=== PATIENT | female | born 1990 | race Caucasian/White ===

== ENCOUNTER 2016-11-03 09:09 | Outpatient (CLI) | payer OTHER ==
--- NOTE | 2016-11-03 10:00 | L&D Flow Sheet ---
LD Flowsheet Datetime Report Generated by CPN: 11/03/2016 10:00 Datetime: 11/03/2016 09:54 Vaginal Exam Exam by: Dr Neilsen (Alexa Baidy, RN) Vaginal Exam Comments: closed thick and high (Alexa Baidy, RN) Datetime: 11/03/2016 09:53 Communication Communication Comments: Dr Neilsen at bedside to speak to pt about POC and perform SVE (Alexa Baidy, RN) Datetime: 11/03/2016 09:30 Vital Signs NBP Sys/Tessa/Mean (mmHg): 113 (QS system process) : 75 (QS system process) : 89 (QS system process) Pulse: 111 (QS system process) Datetime: 11/03/2016 09:28 Pain Pain Scale: 3 (Alexa Giraldo RN) Pain Presence: Constant (Alexa Giraldo RN) Pain Type: Sharp (Alexa Giraldo RN) Pain Location: Other (Annotations: vaginal) (Alexa Giraldo RN) Pain Goal: 1 (Alexa Giraldo RN) Membrane Status: Intact (Alexa Giraldo RN) Vaginal Bleeding: None (Alexa Giraldo RN) Maternal Assessment Level of Consciousness: Fully Conscious (Alexa Giraldo, JEFFERY) DTR's/Clonus: DTRs 2+; No Clonus (Alexa Giraldo, JEFFERY) Headache: Denies (Alexa Giraldo, JEFFERY) Breath Sounds, Left: Clear and Equal (Alexa Giraldo, RN) Breath Sounds, Right: Clear and Equal (Alexa Giraldo, RN) Nausea/Vomiting: Denies (Alexa Giraldo, RN) RUQ Epigastric Pain: Denies (Alexa Giraldo, JEFFERY) Patient Care Patient Position/Activity: Semi-Fowlers (Alexa Giraldo, JEFFERY) Teaching Instructional Method: Verbal; Patient Instructed; Verbalized Understanding (Alexa Giraldo RN) Plan of Care: Plan of Care Discussed (Alexa Giraldo RN) Unit Routine: [place] to Room; Call [place]; Bed (Alexa Giraldo RN)
[2016-11-03 10:07] LABS: APPEARANCE,URINE SLIGHTLY-CLOUDY; BILIRUBIN,URINE NEGATIVE (NEGATIVE); GLUCOSE, URINE NEGATIVE (NEGATIVE); KETONES,URINE NEGATIVE (NEGATIVE); LEUKOCYTE ESTERASE,URINE TRACE (NEGATIVE); NITRITE,URINE NEGATIVE (NEGATIVE); PROTEIN,URINE NEGATIVE (NEGATIVE); UROBILINOGEN,URINE NEGATIVE mg/dL (<2.0)
[2016-11-03 10:22] LABS: URINE BARBITURATES SCREEN NEGATIVE; URINE METHADONE SCREEN NEGATIVE; URINE OPIATES LOW NEGATIVE; URINE PHENCYCLIDINE SCREEN NEGATIVE
[2016-11-03] MEDS ORDERED: HYDROXYZINE PAMOATE 50 MG CAPSULE PO ONE (11:07)
[2016-11-03] MEDS ORDERED: HYDROXYZINE PAMOATE 50 MG CAPSULE ONE (11:09)
== END 2016-11-03 11:19 | disposition home or self-care (01) ==
LOC: LC 09:09
PROVIDERS: ATTEND Specialist
PROC: 4A1HXCZ Monitoring of Products of Conception, Cardiac Rate, External Approach (ICD-10-PCS; principal; 2016-11-03)
DX: O26.893 Other specified pregnancy related conditions, third trimester (principal); R10.2 Pelvic and perineal pain; Z3A.28 28 weeks gestation of pregnancy
CPT/HCPCS: 80307; 81001; 87086

== ENCOUNTER 2016-12-29 18:35 | Outpatient (CLI) | payer OTHER ==
[2016-12-29 19:21] LABS: APPEARANCE,URINE SLIGHTLY-CLOUDY; BILIRUBIN,URINE NEGATIVE (NEGATIVE); GLUCOSE, URINE 50 mg/dL (NEGATIVE); KETONES,URINE 20 mg/dL (NEGATIVE); LEUKOCYTE ESTERASE,URINE NEGATIVE (NEGATIVE); NITRITE,URINE NEGATIVE (NEGATIVE); PROTEIN,URINE NEGATIVE (NEGATIVE); URINE SPECIFIC GRAVITY 1.016; UROBILINOGEN,URINE NEGATIVE mg/dL (<2.0)
[2016-12-29 19:38] LABS: URINE BARBITURATES SCREEN NEGATIVE; URINE METHADONE SCREEN NEGATIVE; URINE OPIATES LOW NEGATIVE; URINE PHENCYCLIDINE SCREEN NEGATIVE
--- NOTE | 2016-12-29 20:01 | L&D Flow Sheet ---
LD Flowsheet Datetime Report Generated by CPN: 12/29/2016 20:00 Datetime: 12/29/2016 19:56 NBP Sys/Tessa/Mean (mmHg): 112 (QS system process) : 66 (QS system process) : 82 (QS system process) Pulse: 103 (QS system process) LaborFlag: Antepartum (QS system process) Datetime: 12/29/2016 19:35 Communication Communication Comments: Dr. Oswald called and notified of pt. arrival, hx, lab results, SVE, toco tracing, and FHT. Orders received once reactive to perform SVE one hour from first SVE and make MD aware (Dary Josias, RN) Datetime: 12/29/2016 19:30 Uterine Activity Monitor Mode: External; Palpation (Dary Josias, RN) Frequency (min): 4-7 (Dary Josias, RN) Quality: Mild/Moderate (Dary Josias, RN) Duration (sec): 40-70 (Dary Josias, RN) Duration Criteria: Less than Two 120 Second Contractions (Dary Josias, RN) Pattern: Normal: <= 5 Contractions in 10 Minutes (Dary Josias, RN) Resting Tone (Palpate): Relaxed (Dary Josias, RN) Assessment A Monitor Mode: External US (Dary Josias, RN) FHR Baseline Rate : 125 (Dary Josias, RN) Variability: Moderate 6-25 bpm (Dary Josias, RN) Accelerations: 15X15 (Dary Josias, RN) Decelerations: None (Dary Josias, RN) Datetime: 12/29/2016 19:27 NBP Sys/Tessa/Mean (mmHg): 114 (QS system process) : 65 (QS system process) : 85 (QS system process) Pulse: 95 (QS system process) LaborFlag: Antepartum (QS system process) Datetime: 12/29/2016 19:19 Pain Pain Scale: 2 (Dary Josias, RN) Pain Presence: Intermittent (Dary Joisas, RN) Pain Type: Contraction (Dary Josias, RN) Pain Location: Abdomen (Dary Josias, RN) Pain Coping: Talking Through Contractions (Dary Josias, RN) Patient Care Patient Position/Activity: Right Tilt (Dary Josias, RN) I/O Interventions: Popsicle (Dary Josias, RN) LaborFlag: Antepartum (QS system process) Datetime: 12/29/2016 19:12 Communication Communication Comments: Report received from A. Sal, RN and care assumed at this time (Dary Josias, RN) Datetime: 12/29/2016 19:01 Vaginal Exam Dilatation (cm): 2.5 (Valencia Huang RN) Effacement (%): 50 (Valencia Huang RN) Station: -2 (Valencia Huang RN) Exam by: Jyoti Huang RN (Valencia Huang RN) Vaginal Bleeding: None (Valencia Huang RN) Cervix, Consistency: Moderate (Valencia Huang RN) Cervix, Position: Posterior (Valencia Huang RN) Datetime: 12/29/2016 18:53 Vital Signs Stage of : Antepartum (Valencia Huang RN) NBP Sys/Tessa/Mean (mmHg): 119 (QS system process) : 67 (QS system process) : 87 (QS system process) Pulse: 103 (QS system process) Respirations: 18 (Valencia Huang RN) Temperature (F): 98.5 (Valencia Huang RN) Temperature (C): 36.9 (QS system process) Temperature Route: Oral (Valencia Huang RN) Frequency (min): 3-4 (Valencia Huang RN) Pain Pain Scale: 2 (Valencia Huang RN) Pain Presence: Intermittent (Valencia Huang RN) Pain Type: Contraction (Valencia Huang RN) Pain Location: Abdomen (Valencia Huang RN) Pain Goal: 2 (Valencia Huang RN) Pain Relief Measures: Comfort Measures (Valencia Huang RN) Pain Coping: Talking Through Contractions (Valencia Huang RN) Vaginal Bleeding: None (Valencia Huang RN) Maternal Assessment Level of Consciousness: Fully Conscious (Valencia Huang RN) DTR's/Clonus: DTRs 1+; No Clonus (Valencia Huang RN) Headache: Denies (Valencia Huang RN) Breath Sounds, Left: Clear and Equal (Valencia Huang RN) Breath Sounds, Right: Clear and Equal (Valencia Huang RN) Nausea/Vomiting: Denies (Valencia Huang RN) RUQ Epigastric Pain: Denies (Valencia Huang RN) Teaching Instructional Method: Verbal; Patient Instructed; Family/Support Person Instructed; Verbalized Understanding (Valencia Huang RN) Plan of Care: Plan of Care Discussed (Valencia Huang RN) Unit Routine: [place] to Room; [place]; Bed; Unit Personnel; Handwashing; Monitoring (Valencia Huang RN) LaborFlag: Antepartum (QS system process)
--- NOTE | 2016-12-29 21:11 | Non Stress Test Report ---
Non Stress Test Datetime Report Generated by CPN: 12/29/2016 21:11 DEMOGRAPHIC EGA NST: 36.3 INDICATION Indication for Study: Other Indication for Study (NST) Other: LC URINE RESULTS Urine Protein, NST: Negative Urine Ketones - NST: Positive Urine Glucose - NST: Positive Urine Blood - NST: Negative MONITORING Monitor Explained: Monitor Explained; Test Explained; Patient Verbalized Understanding Time on Monitor: 12/29/2016 18:54 NST INTERVENTIONS NST Interventions: PO Hydration; Other NST Interventions Other: popsicle Physician Notified NST: Dr. Oswald BABY A: [id number] BABY A Movement : Present Contraction Frequency : 3-9 FHR Baseline : 125 Accelerations : 15X15 Decelerations : None Variability : Moderate 6-25bpm NST Review: Meets Criteria for Reactive NST NST Review and Verified By : Jyoti Yarbrough RN Results: Reactive NST REPORT Report Trigger: Send Report
== END 2016-12-29 21:14 | disposition home or self-care (01) ==
LOC: LC 18:35
PROVIDERS: ATTEND Obstetrics & Gynecology
PROC: 4A1HXCZ Monitoring of Products of Conception, Cardiac Rate, External Approach (ICD-10-PCS; principal; 2016-12-29)
DX: O47.03 False labor before 37 completed weeks of gestation, third trimester (principal); Z3A.36 36 weeks gestation of pregnancy
CPT/HCPCS: 59025; 80307; 81001

== ENCOUNTER → 2017-01-08 | Outpatient (CLI) | payer OTHER | LOC: OD 14:03 | PROVIDERS: ATTEND Specialist | DX: D68.2 Hereditary deficiency of other clotting factors (principal) | CPT/HCPCS: 36415; 85260 ==

== ENCOUNTER 2017-01-12 23:41 | Outpatient (CLI) | payer OTHER ==
[2017-01-13 00:23] LABS: APPEARANCE,URINE CLOUDY; BILIRUBIN,URINE NEGATIVE (NEGATIVE); GLUCOSE, URINE NEGATIVE (NEGATIVE); KETONES,URINE NEGATIVE (NEGATIVE); LEUKOCYTE ESTERASE,URINE SMALL (NEGATIVE); NITRITE,URINE NEGATIVE (NEGATIVE); PROTEIN,URINE 30 mg/dL (NEGATIVE); URINE SPECIFIC GRAVITY 1.027; UROBILINOGEN,URINE NEGATIVE mg/dL (<2.0)
[2017-01-13] MEDS ORDERED: RINGERS SOLUTION,LACTATED 1,000 ML IV PRN (00:28)
[2017-01-13 00:41] LABS: URINE BARBITURATES SCREEN NEGATIVE; URINE METHADONE SCREEN NEGATIVE; URINE OPIATES LOW NEGATIVE; URINE PHENCYCLIDINE SCREEN NEGATIVE
[2017-01-13] MEDS ORDERED: ONDANSETRON 4 MG TAB.RAPDIS ONE (00:58)
[2017-01-13] MEDS ORDERED: ONDANSETRON 4 MG TAB.RAPDIS PO ONE (01:15)
--- NOTE | 2017-01-13 07:36 | L&D Discharge Summary ---
OB Discharge Summary Datetime Report Generated by CPN: 01/13/2017 07:36 DISCHARGE DIAGNOSIS Diagnosis/Symptoms: False Labor Diagnoses/Symptoms Other: vaginal pain Gestation: 38.3 Number of Babies in Womb: 1 Parity: 2 DIET/ACTIVITY/RESTRICTIONS Diet: Regular Activity: Normal Activity TEACHING/INSTRUCTIONS/REFERRALS Instructions Given To: pt Instructions Understood: Patient Verbalized Understanding; Support Person Verbalized Understanding Referrals: None Educational Materials- Other: care notes provided on term labor instructions DISCHARGE INFORMATION Discharged AMA: No Discharge Date/Time: 01/13/2017 01:45 Discharged To: Home Discharge Provider Name: Ahuja Accompanied By: spouse Discharge Method: Ambulatory Condition: Stable FOLLOW UP INFORMATION Follow Up With: [facility] Follow Up On: As Scheduled Follow Up Phone Number: [facility] - Comments: pt educated on kick counts and early labor signs. pt to return to hosptial for SROM, decreased fm, bleeding like a period or labor. GENERAL INSTR-CALL PROVIDER IF: Contractions: Contractions or cramps become more frequent than 8 in one hour or 4 in 20 minutes Gush of Fluid/Blood: Gush of fluid or blood from your vagina (it is normal to have spotting after vaginal exam or intercourse) Vaginal Discharge: Change in the type or amount of vaginal discharge Decreased Movement: Your baby is not moving as much as usual- 4 movements in 1 hour after drinking and resting on side
--- NOTE | 2017-01-16 22:47 | L&D General Admission ---
General Admit Datetime Report Generated by CPN: 01/16/2017 22:45 INFORMATION Patient Age: 26 (11/03/2016 09:09:QS system process) EDC: 01/23/2017 00:00 (11/03/2016 09:21:Xuan Soto RN) : 5 (11/03/2016 09:21:Alexa Giraldo RN) Para: 2 (11/03/2016 09:21:Alexa Giraldo RN) Term: 2 (11/03/2016 09:21:Alexa Giraldo RN) : 0 (11/03/2016 09:21:Alexa Giraldo RN) Spontaneous Abortions: 1 (11/03/2016 09:21:Alexa Giraldo RN) Induced Abortions: 1 (11/03/2016 09:21:Alexa Giraldo RN) Livin (11/03/2016 09:21:Alexa Giraldo RN) Cesareans: 0 (11/03/2016 09:21:Alexa Giraldo RN) VBACs: 0 (11/03/2016 09:21:Alexa Giraldo RN) Ectopic: 0 (11/03/2016 09:21:Alexa Giraldo RN) Multiple Births: 0 (11/03/2016 09:21:Alexa Giraldo RN) Baby, Number in Womb: 1 (11/03/2016 09:21:Alexa Giraldo RN) CARE [facility] (11/03/2016 09:21:Alexa Giraldo RN) Adequate Care: Yes (11/03/2016 09:21:Lyudmila Yarbrough RN) Height (in): 68 (12/29/2016 18:51:QS system process) Height (in): 68 (12/29/2016 18:50:QS system process) Height (in): 67 (11/03/2016 10:16:QS system process) ALLERGIES Medication Allergy: Yes (11/03/2016 09:21:Alexa Giraldo RN) Medication Allergies: dextromethorphan HBr (12/29/2016); pseudoephedrine HCl (12/29/2016); Penicillins (12/29/2016); aspirin (12/29/2016); ibuprofen (12/29/2016) (12/29/2016 18:50:QS system process) Medication Allergies: dextromethorphan HBr (04/13/2016); pseudoephedrine HCl (04/13/2016); Penicillins (04/13/2016); aspirin (04/13/2016); ibuprofen (04/13/2016) (11/03/2016 09:09:QS system process) Latex Allergy: No Latex Allergies (11/03/2016 09:21:Alexa Giraldo RN) COMMUNICATION Primary Language: Trinidadian (11/03/2016 09:21:Dary Ferrara RN) Medical Tx Preferred Language: Trinidadian (11/03/2016 09:21:Dary Ferrara RN) Trinidadian Communication Ability: No understanding, INSOLE BUFFER needed (11/03/2016 09:21:Alexa Giraldo RN) Communication Barrier(s): None (11/03/2016 09:21:Alexa Giraldo RN) DEMOGRAPHICS Address: [address] [place] [id number] (11/03/2016 09:09:QS system process) Zipcode: [address] (11/03/2016 09:09:QS system process) Home (11/03/2016 09:09:QS system process) SSN: [id number] (11/03/2016 09:09:QS system process) Next of Kin Name: JUAN RONDON (12/29/2016 18:35:QS system process) Next of Kin Name: LUIS CARLOS HERNANDEZ (11/03/2016 09:09:QS system process) Next of Kin (12/29/2016 18:35:QS system process) Next of Kin (11/03/2016 09:09:QS system process) Next of Kin Relationship: SPO (12/29/2016 18:35:QS system process) Next of Kin Relationship: MO (11/03/2016 09:09:QS system process) Date of : 1990 (11/03/2016 09:09:QS system process) Marital Status: (11/03/2016 09:09:QS system process) Sex: Female (11/03/2016 09:09:QS system process) Race: (11/03/2016 09:09:QS system process) Ethnicity: Non- or (11/03/2016 09:09:QS system process) Moravian: None (11/03/2016 09:09:QS system process) DRUG AND ALCOHOL USE Alcohol: No (11/03/2016 09:21:Dary Ferrara RN) Cigarettes: Former Smoker. [id number] (11/03/2016 09:21:Dary Ferrara RN) Marijuana: No (11/03/2016 09:21:Dary Ferrara RN) Cocaine: No (11/03/2016 09:21:Dary Ferrara RN) Other Illicit Drugs: No (11/03/2016 09:21:Dary Ferrara RN) VACCINE HISTORY Influenza Vaccine: No (11/03/2016 09:21:Dary Ferrara RN) Pneumococcal Vaccine: No (11/03/2016 09:21:Dary Ferrara RN) Tetanus Vaccine: No (11/03/2016 09:21:Dary Ferrara RN) Tdap Vaccine: No (11/03/2016 09:21:Dary Ferrara RN) Hepatitis B Vaccine: Yes (11/03/2016 09:21:Dary Ferrara RN) Taxation Consultant: [facility] (11/03/2016 09:21:Dary Ferrara RN) Feeding Preference: Breast (11/03/2016 09:21:Dary Ferrara RN) Circumcision: Yes (11/03/2016 09:21:Dary Ferrara RN) Classes Attended: No (11/03/2016 09:21:Dary Ferrara RN) Tubal Ligation: No (11/03/2016 09:21:Dary Ferrara RN) Tubal Authorization Signed: N/A (11/03/2016 09:21:Dary Ferrara RN) Consent: N/A (11/03/2016 09:21:Dary Ferrara RN) Consent Signed: Yes (11/03/2016 09:21:Dary Ferrara RN) Pain Management Plans: Natural (11/03/2016 09:21:Dary Ferrara RN) Plans for Labor and Delivery: None (11/03/2016 09:21:Dary Ferrara RN) Support Person: Juan Rondon (11/03/2016 09:21:Dary Ferrara RN) Support Person Relationship: (11/03/2016 09:21:Dary Ferrara RN) Cultural/Spritual Practice: No (11/03/2016 09:21:Dary Ferrara RN) Spir/Cult Dietary Needs: No (11/03/2016 09:21:Dary Ferrara RN) LIVING SITUATION/DISCHARGE PLAN Living Arrangements: House (11/03/2016 09:21:Dary Ferrara RN) Adequate Access to:: Electric; Heat; Refrigeration; Plumbing/Running water; Phone; Transportation (11/03/2016 09:21:Dary Ferrara RN) WIC Program: No (11/03/2016 09:21:Dary Ferrara RN) Discharge Party Plan Sales Host/Hostess Person: Juan (11/03/2016 09:21:Dary Ferrara RN) Person to Help after Discharge: Juan (11/03/2016 09:21:Dary Ferrara RN) Outside Agency/Stencil Cutter: No (11/03/2016 09:21:Dary Ferrara RN) Car Seat for Discharge: Yes (11/03/2016 09:21:Dary Ferrara RN) Adoption Requested: No (11/03/2016 09:21:Dary Ferrara RN) Pt Contact w/infant Post : N/A (11/03/2016 09:21:Dary Ferrara RN) LABS Blood Type: A Positive (11/03/2016 09:21:Dary Ferrara RN) Group Beta Strep: negative (11/03/2016 09:21:Dary Ferrara RN) Gonorrhea: Negative (11/03/2016 09:21:Dary Ferrara RN) Chlamydia: Negative (11/03/2016 09:21:Dary Ferrara RN) RPR/VDRL: Nonreactive (11/03/2016 09:21:Dary Ferrara RN) Hepatitis B: Negative (11/03/2016 09:21:Dary Ferrara RN) Rubella: Immune (11/03/2016 09:21:Dary Ferrara RN) OB/PREVIOUS HISTORY Previous Procedures: None (11/03/2016 09:21:Dary Ferrara RN) Current Procedures: None (11/03/2016 09:21:Dary Ferrara RN) History of Previous : No (11/03/2016 09:21:Dary Ferrara RN) History of Gestational Diabetes: No (11/03/2016 09:21:Dary Ferrara RN) History of PIH: No (11/03/2016 09:21:Dary Ferrara RN) History of Incompetent Cervix: No (11/03/2016 09:21:Dary Ferrara RN) History of Placenta Previa/Abrup: No (11/03/2016 09:21:Dary Ferrara RN) History of Macrosomia: No (11/03/2016 09:21:Dary Ferrara RN) History of IUGR: No (11/03/2016 09:21:Dary Ferrara RN) History of Hemorrhage: No (11/03/2016 09:21:Dary Ferrara RN) History of Loss/Stillborn: No (11/03/2016 09:21:Dary Ferrara RN) History of : No (11/03/2016 09:21:Dary Ferrara RN) History of D (Rh) Sensitization: No (11/03/2016 09:21:Dary Ferrara RN) History Recurrent Loss/Stillborn: No (11/03/2016 09:21:Dary Ferrara RN) History Depression/PP Depression: No (11/03/2016 09:21:Dary Ferrara RN) History of Uterine Anomaly/TAN: No (11/03/2016 09:21:Dary Ferrara RN) History of Infertility: No (11/03/2016 09:21:Dary Ferrara RN) History of ART Treatment: No (11/03/2016 09:21:Dary Ferrara RN) History of TAN: No (11/03/2016 09:21:Dary Ferrara RN) MEDICAL HISTORY Med Hx Diabetes: No (11/03/2016 09:21:Dary Ferrara RN) Med Hx Hypertension: No (11/03/2016 09:21:Dary Ferrara RN) Med Hx Heart Disease: No (11/03/2016 09:21:Dary Ferrara RN) Med Hx Autoimmune Disorder: No (11/03/2016 09:21:Dary Ferrara RN) Med Hx Kidney Disease/UTI: No (11/03/2016 09:21:Dary Ferrara RN) Med Hx Neurologic/Epilepsy: No (11/03/2016 09:21:Dary Ferrara RN) Med Hx Psychiatric Disorders: No (11/03/2016 09:21:Dary Ferrara RN) Med Hx Hepatitis/Liver Disease: No (11/03/2016 09:21:Dary Ferrara RN) Med Hx Varicosities/Phlebitis: No (11/03/2016 09:21:Dary Ferrara RN) Med Hx Thyroid Dysfunction: No (11/03/2016 09:21:Dary Ferrara RN) Med Hx Trauma/Violence: No (11/03/2016 09:21:Dary Ferrara RN) Med Hx Blood Transfusion: Yes (11/03/2016 09:21:Dary Ferrara RN) Med Hx Pulmonary (Asthma,TB): No (11/03/2016 09:21:Dary Ferrara RN) Med Hx Breast: No (11/03/2016 09:21:Dary Ferrara RN) Med Hx WET PLANT OPERATOR Surgery: No (11/03/2016 09:21:Dary Ferrara RN) Med Hx Hospitalization/Surgery: Yes (11/03/2016 09:21:Dary Ferrara RN) Med Hx Anesthetic Complications: No (11/03/2016 09:21:Dary Ferrara RN) Med Hx Abnormal Pap Smear: No (11/03/2016 09:21:Dary Ferrara RN) Other Medical Diseases: No (11/03/2016 09:21:Dary Ferrara RN) Med Hx Significant Family Hx: No (11/03/2016 09:21:Dary Ferrara RN) Details of Med/Surg Hx: factor X deficiency, 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[facility], plasma transufusion 5 years ago 1992 ENT surgery (11/03/2016 09:21:Dary Ferrara RN) INFECTIOUS HISTORY Inf Hx Gonorrhea: No (11/03/2016 09:21:aDry Ferrara RN) Inf Hx Chlamydia: No (11/03/2016 09:21:Dary Ferrara RN) Inf Hx Syphilis: No (11/03/2016 09:21:Dary Ferrara RN) Inf Hx HIV/AIDS: No (11/03/2016 09:21:Dary Ferrara RN) Inf Hx Human Papilloma Virus: No (11/03/2016 09:21:Dary Ferrara RN) Inf Hx Pt/Partner Genital Herpes: No (11/03/2016 09:21:Dary Ferrara RN) Inf Hx Tuberculosis/Exposure: No (11/03/2016 09:21:Dary Ferrara RN) Inf Hx Hepatitis B,C: No (11/03/2016 09:21:Dary Ferrara RN) Inf Hx Rash or Viral Illness: No (11/03/2016 09:21:Dary Ferrara RN) GENETIC HISTORY Gen Hx Age >=35 at REMI: No (11/03/2016 09:21:Dary Ferrara RN) Gen Hx Thalassemia: No (11/03/2016 09:21:Dary Ferrara RN) Gen Hx Congenital Heart Defect: No (11/03/2016 09:21:Dary Ferrara RN) Gen Hx Neural Tube Defect: No (11/03/2016 09:21:Dary Ferrara RN) Gen Hx Down's Syndrome: No (11/03/2016 09:21:Dary Ferrara RN) Gen Hx Shahid-Sachs: No (11/03/2016 09:21:Dary Ferrara RN) Gen Hx Arjun: No (11/03/2016 09:21:Dary Ferrara RN) Gen Hx Familial Dysautonomia: No (11/03/2016 09:21:Dary Ferrara RN) Gen Hx Sickle Cell Disease/Trait: No (11/03/2016 09:21:Dary Ferrara RN) Gen Hx Hemophilia/Blood Disorder: Yes (11/03/2016 09:21:Dary Ferrara RN) Gen Hx Muscular Dystrophy: No (11/03/2016 09:21:Dary Ferrara RN) Gen Hx Cystic Fibrosis: No (11/03/2016 09:21:Dary Ferrara RN) Gen Hx Huntingtons Chorea: No (11/03/2016 09:21:Dary Ferrara RN) Gen Hx Mental Retardation/Autism: No (11/03/2016 09:21:Dary Ferrara RN) Gen Hx Tested for Fragile X: No (11/03/2016 09:21:Dary Ferrara RN) Gen Hx Other Inher/Chromosomal: No (11/03/2016 09:21:Dary Ferrara RN) Gen Hx Maternal Metabolic DO: No (11/03/2016 09:21:Dary Ferrara RN) Gen Hx Pt Father or FOB Defect: No (11/03/2016 09:21:Dary Ferrara RN) Gen Hx Other Genetic History: No (11/03/2016 09:21:Dary Ferrara RN) Gen Hx Drugs/Meds since LMP: Yes (11/03/2016 09:21:Dary Ferrara RN) Gen Hx Medications: PNV (11/03/2016 09:21:Dary Ferrara RN) Details of Genetic History: oldeest daughter diagnosed with factor X deficiency (11/03/2016 09:21:Dary Ferrara RN)
--- NOTE | 2017-01-16 22:47 | L&D Discharge Summary ---
OB Discharge Summary Datetime Report Generated by CPN: 01/16/2017 22:45 DISCHARGE DIAGNOSIS Diagnosis/Symptoms: False Labor Diagnoses/Symptoms Other: vaginal pain Gestation: 38.4 Number of Babies in Womb: 1 Parity: 2 DIET/ACTIVITY/RESTRICTIONS Diet: Regular Activity: Normal Activity TEACHING/INSTRUCTIONS/REFERRALS Instructions Given To: pt Instructions Understood: Patient Verbalized Understanding; Support Person Verbalized Understanding Referrals: None Educational Materials- Other: care notes provided on term labor instructions DISCHARGE INFORMATION Discharged AMA: No Discharge Date/Time: 01/13/2017 01:45 Discharged To: Home Discharge Provider Name: Ahuaj Accompanied By: spouse Discharge Method: Ambulatory Condition: Stable FOLLOW UP INFORMATION Follow Up With: [facility] Follow Up On: As Scheduled Follow Up Phone Number: [facility] - Comments: pt educated on kick counts and early labor signs. pt to return to hosptial for SROM, decreased fm, bleeding like a period or labor. GENERAL INSTR-CALL PROVIDER IF: Contractions: Contractions or cramps become more frequent than 8 in one hour or 4 in 20 minutes Gush of Fluid/Blood: Gush of fluid or blood from your vagina (it is normal to have spotting after vaginal exam or intercourse) Vaginal Discharge: Change in the type or amount of vaginal discharge Decreased Movement: Your baby is not moving as much as usual- 4 movements in 1 hour after drinking and resting on side
--- NOTE | 2017-01-16 22:47 | L&D Current Admission ---
Current Admit Datetime Report Generated by CPN: 01/16/2017 22:45 ADMISSION INFORMATION Chief Complaint: Contractions (01/13/2017 00:20:Lyudmila Yarbrough RN) Chief Complaint: Contractions (12/29/2016 18:53:Valencia Huang RN) Chief Complaint: Other (Annotations: vaginal pain) (11/03/2016 09:28:Alexa Giraldo RN)
--- NOTE | 2017-01-17 04:47 | L&D Discharge Summary ---
OB Discharge Summary Datetime Report Generated by CPN: 01/17/2017 04:45 DISCHARGE DIAGNOSIS Diagnosis/Symptoms: False Labor Diagnoses/Symptoms Other: vaginal pain Gestation: 38.4 Number of Babies in Womb: 1 Parity: 2 DIET/ACTIVITY/RESTRICTIONS Diet: Regular Activity: Normal Activity TEACHING/INSTRUCTIONS/REFERRALS Instructions Given To: pt Instructions Understood: Patient Verbalized Understanding; Support Person Verbalized Understanding Referrals: None Educational Materials- Other: care notes provided on term labor instructions DISCHARGE INFORMATION Discharged AMA: No Discharge Date/Time: 01/13/2017 01:45 Discharged To: Home Discharge Provider Name: Ahuja Accompanied By: spouse Discharge Method: Ambulatory Condition: Stable FOLLOW UP INFORMATION Follow Up With: [facility] Follow Up On: As Scheduled Follow Up Phone Number: [facility] - Comments: pt educated on kick counts and early labor signs. pt to return to hosptial for SROM, decreased fm, bleeding like a period or labor. GENERAL INSTR-CALL PROVIDER IF: Contractions: Contractions or cramps become more frequent than 8 in one hour or 4 in 20 minutes Gush of Fluid/Blood: Gush of fluid or blood from your vagina (it is normal to have spotting after vaginal exam or intercourse) Vaginal Discharge: Change in the type or amount of vaginal discharge Decreased Movement: Your baby is not moving as much as usual- 4 movements in 1 hour after drinking and resting on side
--- NOTE | 2017-01-17 04:47 | L&D General Admission ---
General Admit Datetime Report Generated by CPN: 01/17/2017 04:45 INFORMATION Patient Age: 26 (11/03/2016 09:09:QS system process) EDC: 01/23/2017 00:00 (11/03/2016 09:21:Xuan Soto RN) : 5 (11/03/2016 09:21:Alexa Giraldo RN) Para: 2 (11/03/2016 09:21:Alexa Giraldo RN) Term: 2 (11/03/2016 09:21:Alexa Giraldo RN) : 0 (11/03/2016 09:21:Alexa Giraldo RN) Spontaneous Abortions: 1 (11/03/2016 09:21:Alexa Giraldo RN) Induced Abortions: 1 (11/03/2016 09:21:Alexa Giraldo RN) Livin (11/03/2016 09:21:Alexa Giraldo RN) Cesareans: 0 (11/03/2016 09:21:Alexa Giraldo RN) VBACs: 0 (11/03/2016 09:21:Alexa Giraldo RN) Ectopic: 0 (11/03/2016 09:21:Alexa Giraldo RN) Multiple Births: 0 (11/03/2016 09:21:Alexa Giraldo RN) Baby, Number in Womb: 1 (11/03/2016 09:21:Alexa Giraldo RN) CARE Primary Order Control Clerk [facility] (11/03/2016 09:21:Alxea Giraldo RN) Adequate Care: Yes (11/03/2016 09:21:Lyudmila Yarbrough RN) Height (in): 68 (12/29/2016 18:51:QS system process) Height (in): 68 (12/29/2016 18:50:QS system process) Height (in): 67 (11/03/2016 10:16:QS system process) ALLERGIES Medication Allergy: Yes (11/03/2016 09:21:Alexa Giraldo RN) Medication Allergies: dextromethorphan HBr (12/29/2016); pseudoephedrine HCl (12/29/2016); Penicillins (12/29/2016); aspirin (12/29/2016); ibuprofen (12/29/2016) (12/29/2016 18:50:QS system process) Medication Allergies: dextromethorphan HBr (04/13/2016); pseudoephedrine HCl (04/13/2016); Penicillins (04/13/2016); aspirin (04/13/2016); ibuprofen (04/13/2016) (11/03/2016 09:09:QS system process) Latex Allergy: No Latex Allergies (11/03/2016 09:21:Alexa Giraldo RN) COMMUNICATION Primary Language: [place] Rican (11/03/2016 09:21:Dary Ferrara RN) Medical Tx Preferred Language: [place]ican (11/03/2016 09:21:Dary Ferrara RN) [place] Communication Ability: No understanding, DIRECTOR LOSS PREVENTION needed (11/03/2016 09:21:Alexa Giraldo RN) Communication Barrier(s): None (11/03/2016 09:21:Alexa Giraldo RN) DEMOGRAPHICS Address: [address] [place] [id number] (11/03/2016 09:09:QS system process) Zipcode: [address] (11/03/2016 09:09:QS system process) Home (11/03/2016 09:09:QS system process) SSN: [id number] (11/03/2016 09:09:QS system process) Next of Kin Name: JUAN RONDON (12/29/2016 18:35:QS system process) Next of Kin Name: LUIS CARLOS HERNANDEZ (11/03/2016 09:09:QS system process) Next of Kin (12/29/2016 18:35:QS system process) Next of Kin (11/03/2016 09:09:QS system process) Next of Kin Relationship: SPO (12/29/2016 18:35:QS system process) Next of Kin Relationship: MO (11/03/2016 09:09:QS system process) Date of : 1990 (11/03/2016 09:09:QS system process) Marital Status: (11/03/2016 09:09:QS system process) Sex: Female (11/03/2016 09:09:QS system process) Race: (11/03/2016 09:09:QS system process) Ethnicity: Non- or (11/03/2016 09:09:QS system process) Mormonism: None (11/03/2016 09:09:QS system process) DRUG AND ALCOHOL USE Alcohol: No (11/03/2016 09:21:Dary Ferrara RN) Cigarettes: Former Smoker. [id number] (11/03/2016 09:21:Dary Ferrara RN) Marijuana: No (11/03/2016 09:21:Dary Ferrara RN) Cocaine: No (11/03/2016 09:21:Dary Ferrara RN) Other Illicit Drugs: No (11/03/2016 09:21:Dary Ferrara RN) VACCINE HISTORY Influenza Vaccine: No (11/03/2016 09:21:Dary Ferrara RN) Pneumococcal Vaccine: No (11/03/2016 09:21:Dary Ferrara RN) Tetanus Vaccine: No (11/03/2016 09:21:Dary Ferrara RN) Tdap Vaccine: No (11/03/2016 09:21:Dary Ferrara RN) Hepatitis B Vaccine: Yes (11/03/2016 09:21:Dary Ferrara RN) Rail Car Repair Carman: [facility] (11/03/2016 09:21:Dary Ferrara RN) Feeding Preference: Breast (11/03/2016 09:21:Dary Ferrara RN) Circumcision: Yes (11/03/2016 09:21:Dary Ferrara RN) Classes Attended: No (11/03/2016 09:21:Dary Ferrara RN) Tubal Ligation: No (11/03/2016 09:21:Dary Ferrara RN) Tubal Authorization Signed: N/A (11/03/2016 09:21:Dary Ferrara RN) Consent: N/A (11/03/2016 09:21:Dary Ferrara RN) Consent Signed: Yes (11/03/2016 09:21:Dary Ferrara RN) Pain Management Plans: Natural (11/03/2016 09:21:Dary Ferrara RN) Plans for Labor and Delivery: None (11/03/2016 09:21:Dary Ferrara RN) Support Person: Juan Rondon (11/03/2016 09:21:Dayr Ferrara RN) Support Person Relationship: (11/03/2016 09:21:Dary Ferrara RN) Cultural/Spritual Practice: No (11/03/2016 09:21:Dary Ferrara RN) Spir/Cult Dietary Needs: No (11/03/2016 09:21:Dary Ferrara RN) LIVING SITUATION/DISCHARGE PLAN Living Arrangements: House (11/03/2016 09:21:Dary Ferrara RN) Adequate Access to:: Electric; Heat; Refrigeration; Plumbing/Running water; Phone; Transportation (11/03/2016 09:21:Dary Ferrara RN) WIC Program: No (11/03/2016 09:21:Dary Ferrara RN) Discharge Electric Truck Driver Person: Juan (11/03/2016 09:21:Dary Ferrara RN) Person to Help after Discharge: Juan (11/03/2016 09:21:Dary Ferrara RN) Outside Agency/Apprentice Architect: No (11/03/2016 09:21:Dary Ferrara RN) Car Seat for Discharge: Yes (11/03/2016 09:21:Dary Ferrara RN) Adoption Requested: No (11/03/2016 09:21:Dary Ferrara RN) Pt Contact w/infant Post : N/A (11/03/2016 09:21:Dary Ferrara RN) LABS Blood Type: A Positive (11/03/2016 09:21:Dary Ferrara RN) Group Beta Strep: negative (11/03/2016 09:21:Dary Ferrara RN) Gonorrhea: Negative (11/03/2016 09:21:Dary Ferrara RN) Chlamydia: Negative (11/03/2016 09:21:Dary Ferrara RN) RPR/VDRL: Nonreactive (11/03/2016 09:21:Dary Ferrara RN) Hepatitis B: Negative (11/03/2016 09:21:Dary Ferrara RN) Rubella: Immune (11/03/2016 09:21:Dary Ferrara RN) OB/PREVIOUS HISTORY Previous Procedures: None (11/03/2016 09:21:Dary Ferrara RN) Current Procedures: None (11/03/2016 09:21:Dary Ferrara RN) History of Previous : No (11/03/2016 09:21:Dary Ferrara RN) History of Gestational Diabetes: No (11/03/2016 09:21:Dary Ferrara RN) History of PIH: No (11/03/2016 09:21:Dary Ferrara RN) History of Incompetent Cervix: No (11/03/2016 09:21:Dary Ferrara RN) History of Placenta Previa/Abrup: No (11/03/2016 09:21:Dary Ferrara RN) History of Macrosomia: No (11/03/2016 09:21:Dary Ferrara RN) History of IUGR: No (11/03/2016 09:21:Dary Ferrara RN) History of Hemorrhage: No (11/03/2016 09:21:Dary Ferrara RN) History of Loss/Stillborn: No (11/03/2016 09:21:Dary Ferrara RN) History of : No (11/03/2016 09:21:Dary Ferrara RN) History of D (Rh) Sensitization: No (11/03/2016 09:21:Dary Ferrara RN) History Recurrent Loss/Stillborn: No (11/03/2016 09:21:Dary Ferrara RN) History Depression/PP Depression: No (11/03/2016 09:21:Dary Ferrara RN) History of Uterine Anomaly/TAN: No (11/03/2016 09:21:Dary Ferrara RN) History of Infertility: No (11/03/2016 09:21:Dary Ferrara RN) History of ART Treatment: No (11/03/2016 09:21:Dary Ferrara RN) History of TAN: No (11/03/2016 09:21:Dary Ferrara RN) MEDICAL HISTORY Med Hx Diabetes: No (11/03/2016 09:21:Dary Ferrara RN) Med Hx Hypertension: No (11/03/2016 09:21:Dary Ferrara RN) Med Hx Heart Disease: No (11/03/2016 09:21:Dary Ferrara RN) Med Hx Autoimmune Disorder: No (11/03/2016 09:21:Dary Ferrara RN) Med Hx Kidney Disease/UTI: No (11/03/2016 09:21:Dary Ferrara RN) Med Hx Neurologic/Epilepsy: No (11/03/2016 09:21:Dary Ferrara RN) Med Hx Psychiatric Disorders: No (11/03/2016 09:21:Dary Ferrara RN) Med Hx Hepatitis/Liver Disease: No (11/03/2016 09:21:Dary Ferrara RN) Med Hx Varicosities/Phlebitis: No (11/03/2016 09:21:Dary Ferrara RN) Med Hx Thyroid Dysfunction: No (11/03/2016 09:21:Dary Ferrara RN) Med Hx Trauma/Violence: No (11/03/2016 09:21:Dary Ferrara RN) Med Hx Blood Transfusion: Yes (11/03/2016 09:21:Dary Ferrara RN) Med Hx Pulmonary (Asthma,TB): No (11/03/2016 09:21:Dary Ferrara RN) Med Hx Breast: No (11/03/2016 09:21:Dary Ferrara RN) 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[facility], plasma transufusion 5 years ago 1992 ENT surgery (11/03/2016 09:21:Dary Ferrara RN) INFECTIOUS HISTORY Inf Hx Gonorrhea: No (11/03/2016 09:21:Dary Ferrara RN) Inf Hx Chlamydia: No (11/03/2016 09:21:Dary Ferrara RN) Inf Hx Syphilis: No (11/03/2016 09:21:Dary Ferrara RN) Inf Hx HIV/AIDS: No (11/03/2016 09:21:Dary Ferrara RN) Inf Hx Human Papilloma Virus: No (11/03/2016 09:21:Dary Ferrara RN) Inf Hx Pt/Partner Genital Herpes: No (11/03/2016 09:21:Dary Ferrara RN) Inf Hx Tuberculosis/Exposure: No (11/03/2016 09:21:Dary Ferrara RN) Inf Hx Hepatitis B,C: No (11/03/2016 09:21:Dary Ferrara RN) Inf Hx Rash or Viral Illness: No (11/03/2016 09:21:Dary Ferrara RN) GENETIC HISTORY Gen Hx Age >=35 at REMI: No (11/03/2016 09:21:Dary Ferrara RN) Gen Hx Thalassemia: No (11/03/2016 09:21:Dary Ferrara RN) Gen Hx Congenital Heart Defect: No (11/03/2016 09:21:Dary Ferrara RN) Gen Hx Neural Tube Defect: No (11/03/2016 09:21:Dary Ferrara RN) Gen Hx Down's Syndrome: No (11/03/2016 09:21:Dary Ferrara RN) Gen Hx Shahid-Sachs: No (11/03/2016 09:21:Dary Ferrara RN) Gen Hx Arjun: No (11/03/2016 09:21:Dary Ferrara RN) Gen Hx Familial Dysautonomia: No (11/03/2016 09:21:Dary Ferrara RN) Gen Hx Sickle Cell Disease/Trait: No (11/03/2016 09:21:Dary Ferrara RN) Gen Hx Hemophilia/Blood Disorder: Yes (11/03/2016 09:21:Dary Ferrara RN) Gen Hx Muscular Dystrophy: No (11/03/2016 09:21:Dary Ferrara RN) Gen Hx Cystic Fibrosis: No (11/03/2016 09:21:Dary Ferrara RN) Gen Hx Huntingtons Chorea: No (11/03/2016 09:21:Dary Ferrara RN) Gen Hx Mental Retardation/Autism: No (11/03/2016 09:21:Dary Ferrara RN) Gen Hx Tested for Fragile X: No (11/03/2016 09:21:Dary Ferrara RN) Gen Hx Other Inher/Chromosomal: No (11/03/2016 09:21:Dary Ferrara RN) Gen Hx Maternal Metabolic DO: No (11/03/2016 09:21:Dary Ferrara RN) Gen Hx Pt Father or FOB Defect: No (11/03/2016 09:21:Dary Ferrara RN) Gen Hx Other Genetic History: No (11/03/2016 09:21:Dary Ferrara RN) Gen Hx Drugs/Meds since LMP: Yes (11/03/2016 09:21:Dary Ferrara RN) Gen Hx Medications: PNV (11/03/2016 09:21:Dary Ferrara RN) Details of Genetic History: oldeest daughter diagnosed with factor X deficiency (11/03/2016 09:21:Dary Ferrara RN)
--- NOTE | 2017-01-17 04:47 | L&D Current Admission ---
Current Admit Datetime Report Generated by CPN: 01/17/2017 04:45 ADMISSION INFORMATION Chief Complaint: Contractions (01/13/2017 00:20:Lyudimla Yarbrough RN) Chief Complaint: Contractions (12/29/2016 18:53:Valencia Huang RN) Chief Complaint: Other (Annotations: vaginal pain) (11/03/2016 09:28:Alexa Giraldo RN)
--- NOTE | 2017-01-17 10:47 | L&D Discharge Summary ---
OB Discharge Summary Datetime Report Generated by CPN: 01/17/2017 10:45 DISCHARGE DIAGNOSIS Diagnosis/Symptoms: False Labor Diagnoses/Symptoms Other: vaginal pain Gestation: 38.4 Number of Babies in Womb: 1 Parity: 2 DIET/ACTIVITY/RESTRICTIONS Diet: Regular Activity: Normal Activity TEACHING/INSTRUCTIONS/REFERRALS Instructions Given To: pt Instructions Understood: Patient Verbalized Understanding; Support Person Verbalized Understanding Referrals: None Educational Materials- Other: care notes provided on term labor instructions DISCHARGE INFORMATION Discharged AMA: No Discharge Date/Time: 01/13/2017 01:45 Discharged To: Home Discharge Provider Name: Ahuja Accompanied By: spouse Discharge Method: Ambulatory Condition: Stable FOLLOW UP INFORMATION Follow Up With: [facility] Follow Up On: As Scheduled Follow Up Phone Number: [facility] - Comments: pt educated on kick counts and early labor signs. pt to return to hosptial for SROM, decreased fm, bleeding like a period or labor. GENERAL INSTR-CALL PROVIDER IF: Contractions: Contractions or cramps become more frequent than 8 in one hour or 4 in 20 minutes Gush of Fluid/Blood: Gush of fluid or blood from your vagina (it is normal to have spotting after vaginal exam or intercourse) Vaginal Discharge: Change in the type or amount of vaginal discharge Decreased Movement: Your baby is not moving as much as usual- 4 movements in 1 hour after drinking and resting on side
--- NOTE | 2017-01-17 10:47 | L&D Current Admission ---
Current Admit Datetime Report Generated by CPN: 01/17/2017 10:45 ADMISSION INFORMATION Chief Complaint: Contractions (01/13/2017 00:20:Lyudmila Yarbrough RN) Chief Complaint: Contractions (12/29/2016 18:53:Valencia Huang RN) Chief Complaint: Other (Annotations: vaginal pain) (11/03/2016 09:28:Alexa Giraldo RN)
--- NOTE | 2017-01-17 10:47 | L&D General Admission ---
General Admit Datetime Report Generated by CPN: 01/17/2017 10:45 INFORMATION Patient Age: 26 (11/03/2016 09:09:QS system process) EDC: 01/23/2017 00:00 (11/03/2016 09:21:Xuan Soto RN) : 5 (11/03/2016 09:21:Alexa Giraldo RN) Para: 2 (11/03/2016 09:21:Alexa Giraldo RN) Term: 2 (11/03/2016 09:21:Alexa Giraldo RN) : 0 (11/03/2016 09:21:Alexa Giraldo RN) Spontaneous Abortions: 1 (11/03/2016 09:21:Alexa Giraldo RN) Induced Abortions: 1 (11/03/2016 09:21:Alexa Giraldo RN) Livin (11/03/2016 09:21:Alexa Giraldo RN) Cesareans: 0 (11/03/2016 09:21:Alexa Giraldo RN) VBACs: 0 (11/03/2016 09:21:Alexa Giraldo RN) Ectopic: 0 (11/03/2016 09:21:Alexa Giraldo RN) Multiple Births: 0 (11/03/2016 09:21:Alexa Giraldo RN) Baby, Number in Womb: 1 (11/03/2016 09:21:Alexa Giraldo RN) CARE [facility]ator: [facility] (11/03/2016 09:21:Alexa Giraldo RN) Adequate Care: Yes (11/03/2016 09:21:Lyudmila Yarbrough RN) Height (in): 68 (12/29/2016 18:51:QS system process) Height (in): 68 (12/29/2016 18:50:QS system process) Height (in): 67 (11/03/2016 10:16:QS system process) ALLERGIES Medication Allergy: Yes (11/03/2016 09:21:Alexa Giraldo RN) Medication Allergies: dextromethorphan HBr (12/29/2016); pseudoephedrine HCl (12/29/2016); Penicillins (12/29/2016); aspirin (12/29/2016); ibuprofen (12/29/2016) (12/29/2016 18:50:QS system process) Medication Allergies: dextromethorphan HBr (04/13/2016); pseudoephedrine HCl (04/13/2016); Penicillins (04/13/2016); aspirin (04/13/2016); ibuprofen (04/13/2016) (11/03/2016 09:09:QS system process) Latex Allergy: No Latex Allergies (11/03/2016 09:21:Alexa Giraldo RN) COMMUNICATION Primary Language: Lithuanian (11/03/2016 09:21:Dary Ferrara RN) Medical Tx Preferred Language: Lithuanian (11/03/2016 09:21:Dary Ferrara RN) Lithuanian Communication Ability: No understanding, COMMUNITY LIFE DIRECTOR needed (11/03/2016 09:21:Alexa Giraldo RN) Communication Barrier(s): None (11/03/2016 09:21:Alexa Giraldo RN) DEMOGRAPHICS Address: [address] [place] [id number] (11/03/2016 09:09:QS system process) Zipcode: [address] (11/03/2016 09:09:QS system process) Home (11/03/2016 09:09:QS system process) SSN: [id number] (11/03/2016 09:09:QS system process) Next of Kin Name: JUAN RONDON (12/29/2016 18:35:QS system process) Next of Kin Name: LUIS CARLOS HERNANDEZ (11/03/2016 09:09:QS system process) Next of Kin (12/29/2016 18:35:QS system process) Next of Kin (11/03/2016 09:09:QS system process) Next of Kin Relationship: SPO (12/29/2016 18:35:QS system process) Next of Kin Relationship: [place] (11/03/2016 09:09:QS system process) Date of : 1990 (11/03/2016 09:09:QS system process) Marital Status: (11/03/2016 09:09:QS system process) Sex: Female (11/03/2016 09:09:QS system process) Race: (11/03/2016 09:09:QS system process) Ethnicity: Non- or (11/03/2016 09:09:QS system process) Temple: None (11/03/2016 09:09:QS system process) DRUG AND ALCOHOL USE Alcohol: No (11/03/2016 09:21:Dary Ferrara RN) Cigarettes: Former Smoker. [id number] (11/03/2016 09:21:Dary Ferrara RN) Marijuana: No (11/03/2016 09:21:Dary Ferrara RN) Cocaine: No (11/03/2016 09:21:Dary Ferrara RN) Other Illicit Drugs: No (11/03/2016 09:21:Dary Ferrara RN) VACCINE HISTORY Influenza Vaccine: No (11/03/2016 09:21:Dary Ferrara RN) Pneumococcal Vaccine: No (11/03/2016 09:21:Dary Ferrara RN) Tetanus Vaccine: No (11/03/2016 09:21:Dary Ferrara RN) Tdap Vaccine: No (11/03/2016 09:21:Dary Ferrara RN) Hepatitis B Vaccine: Yes (11/03/2016 09:21:Dary Ferrara RN) Research Fellow: [facility] (11/03/2016 09:21:Dary Ferrara RN) Feeding Preference: Breast (11/03/2016 09:21:Dary Ferrara RN) Circumcision: Yes (11/03/2016 09:21:Dary Ferrara RN) Classes Attended: No (11/03/2016 09:21:Dary Ferrara RN) Tubal Ligation: No (11/03/2016 09:21:Dary Ferrara RN) Tubal Authorization Signed: N/A (11/03/2016 09:21:Dary Ferrara RN) Consent: N/A (11/03/2016 09:21:Dary Ferrara RN) Consent Signed: Yes (11/03/2016 09:21:Dary Ferrara RN) Pain Management Plans: Natural (11/03/2016 09:21:Dary Ferrara RN) Plans for Labor and Delivery: None (11/03/2016 09:21:Dary Ferrara RN) Support Person: Juan Rondon (11/03/2016 09:21:Dary Ferrara RN) Support Person Relationship: (11/03/2016 09:21:Dary Ferrara RN) Cultural/Spritual Practice: No (11/03/2016 09:21:Dary Ferrara RN) Spir/Cult Dietary Needs: No (11/03/2016 09:21:Dary Ferrara RN) LIVING SITUATION/DISCHARGE PLAN Living Arrangements: House (11/03/2016 09:21:Dary Ferrara RN) Adequate Access to:: Electric; Heat; Refrigeration; Plumbing/Running water; Phone; Transportation (11/03/2016 09:21:Dary Ferrara RN) WIC Program: No (11/03/2016 09:21:Dary Ferrara RN) Discharge Program Manager Slp Person: Juan (11/03/2016 09:21:Dary Ferrara RN) Person to Help after Discharge: Juan (11/03/2016 09:21:Dary Ferrara RN) Outside Agency/Scalping Machine Operator: No (11/03/2016 09:21:Dary Ferrara RN) Car Seat for Discharge: Yes (11/03/2016 09:21:Dary Ferrara RN) Adoption Requested: No (11/03/2016 09:21:Dary Ferrara RN) Pt Contact w/infant Post : N/A (11/03/2016 09:21:Dary Ferrara RN) LABS Blood Type: A Positive (11/03/2016 09:21:Dary Ferrara RN) Group Beta Strep: negative (11/03/2016 09:21:Dary Ferrara RN) Gonorrhea: Negative (11/03/2016 09:21:Dary Ferrara RN) Chlamydia: Negative (11/03/2016 09:21:Dary Ferrara RN) RPR/VDRL: Nonreactive (11/03/2016 09:21:Dary Ferrara RN) Hepatitis B: Negative (11/03/2016 09:21:Dary Ferrara RN) Rubella: Immune (11/03/2016 09:21:Dary Ferrara RN) OB/PREVIOUS HISTORY Previous Procedures: None (11/03/2016 09:21:Dary Ferrara RN) Current Procedures: None (11/03/2016 09:21:Dary Ferrara RN) History of Previous : No (11/03/2016 09:21:Dary Ferrara RN) History of Gestational Diabetes: No (11/03/2016 09:21:Dary Ferrara RN) History of PIH: No (11/03/2016 09:21:Dary Ferrara RN) History of Incompetent Cervix: No (11/03/2016 09:21:Dary Ferrara RN) History of Placenta Previa/Abrup: No (11/03/2016 09:21:Dary Ferrara RN) History of Macrosomia: No (11/03/2016 09:21:Dary Ferrara RN) History of IUGR: No (11/03/2016 09:21:Dary Ferrara RN) History of Hemorrhage: No (11/03/2016 09:21:Dary Ferrara RN) History of Loss/Stillborn: No (11/03/2016 09:21:Dary Ferrara RN) History of : No (11/03/2016 09:21:Dary Ferrara RN) History of D (Rh) Sensitization: No (11/03/2016 09:21:Dary Ferrara RN) History Recurrent Loss/Stillborn: No (11/03/2016 09:21:Dary Ferrara RN) History Depression/PP Depression: No (11/03/2016 09:21:Dary Ferrara RN) History of Uterine Anomaly/TAN: No (11/03/2016 09:21:Dary Ferrara RN) History of Infertility: No (11/03/2016 09:21:Dary Ferrara RN) History of ART Treatment: No (11/03/2016 09:21:Dary Ferrara RN) History of TAN: No (11/03/2016 09:21:Dary Ferrara RN) MEDICAL HISTORY Med Hx Diabetes: No (11/03/2016 09:21:Dary Ferrara RN) Med Hx Hypertension: No (11/03/2016 09:21:Dary Ferrara RN) Med Hx Heart Disease: No (11/03/2016 09:21:Dary Ferrara RN) Med Hx Autoimmune Disorder: No (11/03/2016 09:21:Dary Ferrara RN) Med Hx Kidney Disease/UTI: No (11/03/2016 09:21:Dary Ferrara RN) Med Hx Neurologic/Epilepsy: No (11/03/2016 09:21:Dary Ferrara RN) Med Hx Psychiatric Disorders: No (11/03/2016 09:21:Dary Ferrara RN) Med Hx Hepatitis/Liver Disease: No (11/03/2016 09:21:Dary Ferrara RN) Med Hx Varicosities/Phlebitis: No (11/03/2016 09:21:Dary Ferrara RN) Med Hx Thyroid Dysfunction: No (11/03/2016 09:21:Dary Ferrara RN) Med Hx Trauma/Violence: No (11/03/2016 09:21:Dary Ferrara RN) Med Hx Blood Transfusion: Yes (11/03/2016 09:21:Dary Ferrara RN) Med Hx Pulmonary (Asthma,TB): No (11/03/2016 09:21:Dary Ferrara RN) Med Hx Breast: No (11/03/2016 09:21:Dary Ferrara RN) 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[facility], plasma transufusion 5 years ago 1992 ENT surgery (11/03/2016 09:21:Dary Ferrara RN) INFECTIOUS HISTORY Inf Hx Gonorrhea: No (11/03/2016 09:21:Dary Ferrara RN) Inf Hx Chlamydia: No (11/03/2016 09:21:Dary Ferrara RN) Inf Hx Syphilis: No (11/03/2016 09:21:Dary Ferrara RN) Inf Hx HIV/AIDS: No (11/03/2016 09:21:Dary Ferrara RN) Inf Hx Human Papilloma Virus: No (11/03/2016 09:21:Dary Ferrara RN) Inf Hx Pt/Partner Genital Herpes: No (11/03/2016 09:21:Dary Ferrara RN) Inf Hx Tuberculosis/Exposure: No (11/03/2016 09:21:Dary Ferrara RN) Inf Hx Hepatitis B,C: No (11/03/2016 09:21:Dary Ferrara RN) Inf Hx Rash or Viral Illness: No (11/03/2016 09:21:Dary Ferrara RN) GENETIC HISTORY Gen Hx Age >=35 at REMI: No (11/03/2016 09:21:Dary Ferrara RN) Gen Hx Thalassemia: No (11/03/2016 09:21:Dary Ferrara RN) Gen Hx Congenital Heart Defect: No (11/03/2016 09:21:Dary Ferrara RN) Gen Hx Neural Tube Defect: No (11/03/2016 09:21:Dary Ferrara RN) Gen Hx Down's Syndrome: No (11/03/2016 09:21:Dary Ferrara RN) Gen Hx Shahid-Sachs: No (11/03/2016 09:21:Dary Ferrara RN) Gen Hx Arjun: No (11/03/2016 09:21:Dary Ferrara RN) Gen Hx Familial Dysautonomia: No (11/03/2016 09:21:Dary Ferrara RN) Gen Hx Sickle Cell Disease/Trait: No (11/03/2016 09:21:Dary Ferrara RN) Gen Hx Hemophilia/Blood Disorder: Yes (11/03/2016 09:21:Dary Ferrara RN) Gen Hx Muscular Dystrophy: No (11/03/2016 09:21:Dary Ferrara RN) Gen Hx Cystic Fibrosis: No (11/03/2016 09:21:Dary Ferrara RN) Gen Hx Huntingtons Chorea: No (11/03/2016 09:21:Dary Ferrara RN) Gen Hx Mental Retardation/Autism: No (11/03/2016 09:21:Dary Ferrara RN) Gen Hx Tested for Fragile X: No (11/03/2016 09:21:Dary Ferrara RN) Gen Hx Other Inher/Chromosomal: No (11/03/2016 09:21:Dary Ferrara RN) Gen Hx Maternal Metabolic DO: No (11/03/2016 09:21:Dary Ferrara RN) Gen Hx Pt Father or FOB Defect: No (11/03/2016 09:21:Dary Ferrara RN) Gen Hx Other Genetic History: No (11/03/2016 09:21:Dary Ferrara RN) Gen Hx Drugs/Meds since LMP: Yes (11/03/2016 09:21:Dary Ferrraa RN) Gen Hx Medications: PNV (11/03/2016 09:21:Dary Ferrara RN) Details of Genetic History: oldeest daughter diagnosed with factor X deficiency (11/03/2016 09:21:Dary Ferrara RN)
== END 2017-01-13 01:45 | disposition home or self-care (01) ==
LOC: LC 23:41
PROVIDERS: ATTEND Student in an Organized Health Care Education/Training Program
PROC: 4A1HXCZ Monitoring of Products of Conception, Cardiac Rate, External Approach (ICD-10-PCS; principal; 2017-01-12)
DX: O47.1 False labor at or after 37 completed weeks of gestation (principal); Z3A.38 38 weeks gestation of pregnancy
CPT/HCPCS: 59025; 81005; 80307; S0119

== ENCOUNTER → 2018-10-22 | Outpatient (CLI) | payer OTHER ==
[2018-10-22 17:32] LABS: HEMATOCRIT 39.2 % (36.0-47.0); HEMOGLOBIN 13.7 g/dL (12.0-15.5); MEAN CORPUSCULAR HEMOGLOBIN 32.1 pg (27.0-33.4); MEAN CORPUSCULAR HGB CONC 34.9 g/dL (32.0-36.0); MEAN CORPUSCULAR VOLUME 92 fl (80-97); PLATELET COUNT 304 10^3/uL (150-450); RED BLOOD COUNT 4.27 10^6/uL (3.72-5.28); RED CELL DISTRIBUTION WIDTH 12.9 % (11.5-14.0); WHITE BLOOD COUNT 10.3 10^3/uL (4.0-10.5)
[2018-10-22 17:38] LABS: INTERNATIONAL RATION (INR) 1.18; PROTHROMBIN TIME 15.6 SEC (11.4-15.4)
[2018-10-22 17:39] LABS: PARTIAL THROMBOPLASTIN TIME 35.7 SEC (23.5-35.8)
[2018-10-22 17:56] LABS: ANION GAP 9 (5-19); BLOOD UREA NITROGEN 11 mg/dL (7-20); CALCIUM 9.6 mg/dL (8.4-10.2); CARBON DIOXIDE 27 mmol/L (22-30); CHLORIDE 104 mmol/L (98-107); GLUCOSE 111 mg/dL (75-110); POTASSIUM 3.9 mmol/L (3.6-5.0); SODIUM 140.2 mmol/L (137-145)
== END ==
LOC: OD 16:42
PROVIDERS: ATTEND Family Medicine
DX: D68.2 Hereditary deficiency of other clotting factors (principal); R31.9 Hematuria, unspecified
CPT/HCPCS: 36415; 80048; 85027; 85610; 85730

== ENCOUNTER → 2018-10-23 | Outpatient (CLI) | payer OTHER ==
--- NOTE | 2018-10-23 09:58 | RADIOLOGY REPORT (SQ) ---
EXAM DESCRIPTION: CT ABD/PELVIS NO ORAL OR IV COMPLETED DATE/TIME: 10/23/2018 9:25 am REASON FOR STUDY: HEMATURIA, UNSPECIFIED R31.9 HEMATURIA, UNSPECIFIED COMPARISON: None. TECHNIQUE: CT scan of the abdomen and pelvis performed without intravenous or oral contrast. Images reviewed with lung, soft tissue, and bone windows. Reconstructed coronal and sagittal MPR images revi ewed. All images stored on PACS. All CT scanners at this facility use dose modulation, iterative reconstruction, and/or weight based d osing when appropriate to reduce radiation dose to as low as reasonably achievable (ALARA). [facility]: Dose Right [facility]: CareDose [facility]: Dose Right [facility]: Teradose 4D [facility]: Smart PictureHealing RADIATION DOSE: CT Rad equipment meets quality standard of care and radiation dose reduction techniq ues were employed. CTDIvol: 3.1 mGy. DLP: 164 mGy-cm.mGy. LIMITATIONS: None. FINDINGS: LOWER CHEST: No significant findings. No nodules or infiltrates. NON-CONTRASTED LIVER, SPLEEN, ADRENALS: Evaluation limited by lack of IV contrast. No identified sign ificant masses. PANCREAS: No masses. No peripancreatic inflammatory changes. GALLBLADDER: No identified stones by CT criteria. No inflammatory changes to suggest cholecystitis. RIGHT KIDNEY AND URETER: No suspicious masses. Assessment limited by lack of IV contrast. No signif icant calcifications. No hydronephrosis or hydroureter. LEFT KIDNEY AND URETER: No suspicious masses. Assessment limited by lack of IV contrast. No signifi cant calcifications. No hydronephrosis or hydroureter. AORTA AND RETROPERITONEUM: No aneurysm. No retroperitoneal masses or adenopathy. BOWEL AND PERITONEAL CAVITY: No obvious masses or inflammatory changes. No free fluid. APPENDIX: Normal. PELVIS, BLADDER, AND ABDOMINAL WALL:3.5 cm low-attenuation lesion in the left adnexa, probable ovaria n cyst. No free fluid. Bladder normal. BONES: No significant findings. OTHER: No other significant finding. IMPRESSION: 3.5 CM PRESUMED LEFT OVARIAN CYST. NO OTHER SIGNIFICANT OR ACUTE PROCESS IN THE ABDOMEN OR PELVIS. COMMENT: Quality ID # [id number]: Final reports with documentation of one or more dose reduction techniques (e.g., Automated exposure control, adjustment of the mA and/or kV according to patient size, use of iterative reconstruction technique) TECHNICAL DOCUMENTATION: JOB ID: [id number] [employer]- All Rights Reserved Reading location - IP/workstation name: [email or web address]
== END ==
LOC: RAD 09:19
PROVIDERS: ATTEND Family Medicine
DX: R31.9 Hematuria, unspecified (principal)
CPT/HCPCS: 74176